=== PATIENT | female | born 1965 | race Caucasian/White ===

== ENCOUNTER 2019-11-06 01:21 | Day surgery (SDC) | payer OTHER, SELFPAY ==
[2019-11-01 11:23] VITALS: BMI 30.4
--- NOTE | 2019-11-06 08:18 | WPDANESEPPF ---
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 Patient Data Age: 54 Gender: F Height: 5 ft 5 in Weight: 83 kg Allergies Allergy/AdvReac Type Severity Reaction Status Date / Time No Known Allergies Allergy Verified 09/10/19 15:20 Home Medications Medication Instructions Recorded Confirmed Type ropinirole 2 mg tablet 2 mg PO TID #90 tablet 07/16/19 Rx trazodone 50 mg tablet 50 mg PO BID #60 tablet 07/19/19 07/19/19 Rx celecoxib 200 mg capsule 200 mg PO DAILY 09/09/19 History milnacipran 50 mg tablet 50 mg PO TID tablet 09/09/19 History secukinumab 150 mg/mL subcutaneous 150 mg SUB-Q ONCE 09/10/19 History syringe sertraline 100 mg tablet 100 mg PO DAILY #30 tablet 09/17/19 Rx omeprazole 40 mg capsule,delayed 40 mg PO TID #90 cap 09/24/19 09/24/19 Rx release ferrous sulfate 325 mg (65 mg 325 mg PO BID #60 tablet 10/16/19 Rx iron) tablet milnacipran [Savella] mg 11/01/19 11/01/19 History cyclobenzaprine 10 mg tablet 10 mg PO TID #90 tablet 11/02/19 Rx Patient hx anesthesia problems: none Family hx anesthesia problems: none PMFSH Past Medical History Medical History Arthritis Colon cancer screening GERD (gastroesophageal reflux disease) Labral tear of hip joint Plantar fasciitis Psoriasis Surgical History Surgical History History of thoracic surgery Family History Family History Other Family history of coronary artery disease Social History Social History Years smoked: 30 Smoking status: Former smoker Tobacco type: cigarettes Alcohol intake: current Anes - Eval Final PreProcedure Day of Procedure 11/06/19 08:18 Patient weight: obese Heart: regular rate and rhythm Lungs: decreased breath sounds Airway: Mallampati scale class III Neurological: alert and oriented Last oral intake: >/= 8 hours ASA classification: III Emergent: no Anesthetic plan: proceed Anesthesia type and monitoring: general GIVS and standard monitoring Informed Consent: The patient's anesthetic plan and its attendant risks and benefits were discussed with the patient/family/POA. Questions were solicited and answers provided to the satisfaction of the patient/family/POA.
[2019-11-06 08:22] VITALS: BP 142/83; PULSE 85; RESP 16; TEMP 36.9; O2SAT 97
[2019-11-06] MEDS: LACTATED RINGERS 1,000 ML 150 ML IV CONT (08:26)
--- NOTE | 2019-11-06 09:42 | PM.HPGS ---
History of Present Illness History of Present Illness Consent: Risks, benefits, and alternatives have been discussed and questions answered. Patient agrees to proceed with procedure. Chief complaint: Kramer's Esophagus with Esophagitis Narrative: Rashida Dumas is a 54 year old female with history of Kramer's, last EGD 4 years ago, now using ppi Review of Systems Constitutional: Constitutional: Denies headache(s) and Denies weakness Eyes: Eyes: Denies blurry vision ENT: Reports Normal hearing present, Denies headache(s) and Denies neck pain Cardiovascular: Cardiovascular: Denies chest pain and Denies dyspnea Respiratory: Respiratory: Denies dyspnea Gastrointestinal: Gastrointestinal: Reports no additional gastrointestinal complaints Genitourinary: Genitourinary: Denies dysuria Musculoskeletal: Musculoskeletal: Denies neck pain Integumentary/Breasts: Skin/Breast: Denies dry skin Neurologic: Reports Normal hearing present, Denies headache(s) and Denies weakness Psychiatric: Psychiatric: Denies anxiety Endocrine: Endocrine: Denies change in body appearance Hematologic/Lymphatic: Hematologic/Lymphatic: Denies easy bleeding Allergic/Immunologic: Allergic/Immunologic: Denies urticaria PMFSH Past Medical History Medical History Arthritis Colon cancer screening GERD (gastroesophageal reflux disease) Labral tear of hip joint Plantar fasciitis Psoriasis Surgical History Surgical History History of thoracic surgery Family History Family History Other Family history of coronary artery disease Social History Social History Years smoked: 30 Smoking status: Former smoker Tobacco type: cigarettes Alcohol intake: current Meds Home Medications and Allergies Home Medications Medication Instructions Recorded Confirmed Type ropinirole 2 mg tablet 2 mg PO TID #90 tablet 07/16/19 11/06/19 Rx trazodone 50 mg tablet 50 mg PO BID #60 tablet 07/19/19 11/06/19 Rx milnacipran 50 mg tablet 50 mg PO TID tablet 09/09/19 11/06/19 History omeprazole 40 mg capsule,delayed 40 mg PO TID #90 cap 09/24/19 11/06/19 Rx release ferrous sulfate 325 mg (65 mg 325 mg PO BID #60 tablet 10/16/19 11/06/19 Rx iron) tablet cholecalciferol (vitamin D3) 25 mcg PO TID 11/06/19 11/06/19 History [Vitamin D3] cyclobenzaprine 10 mg PO TID PRN 11/06/19 11/06/19 History vitamin E 400 unit PO DAILY 11/06/19 11/06/19 History Allergies Allergy/AdvReac Type Severity Reaction Status Date / Time No Known Allergies Allergy Verified 11/06/19 08:21 Vital Signs Vital Signs - 24 hr 11/06/19 08:22 Temperature 98.4 F Pulse Rate 85 Respiratory Rate 16 Blood Pressure 142/83 H Pulse Oximetry 97 Exam Const: General: comfortable and no acute distress HENMT: General nose exam: Normal nares present Eyes: General: appearance normal, both eyes and all related structures Neck: Neck: no JVD Resp: Auscultation: clear to auscultation bilaterally Cardio: Rate: regular rate Rhythm: regular rhythm GI: Inspection: non-distended GI Palp: Yes Soft to palpation Skin: General skin exam: normal color Neuro: General: gait normal Speech: normal speech Extrem: General: normal to inspection Psych: Mental Status: mental status grossly normal Assessment and Plan Assessment and plan (1) Kramer's esophagus with esophagitis: Code(s): K22.70 - Kramer's esophagus without dysplasia; K20.9 - Esophagitis, unspecified Status: Acute Assessment and Plan: will proceed with egd
[2019-11-06 10:02] VITALS: BP 103/61; PULSE 91; RESP 22; O2SAT 98
[2019-11-06 10:12] VITALS: BP 95/60; PULSE 83; RESP 20; O2SAT 99
[2019-11-06 10:22] VITALS: BP 114/71; PULSE 84; RESP 24; O2SAT 100
== END 2019-11-06 10:46 | disposition home or self-care (01) ==
PROVIDERS: PCP Family Medicine; Visit Provider Internal Medicine Gastroenterology
PROC: 0DJ08ZZ Inspection of Upper Intestinal Tract, Via Natural or Artificial Opening Endoscopic (ICD-10-PCS; CPT 43235; principal; 2019-11-06 09:30)
DX: K22.70 Barrett's esophagus without dysplasia (principal); K44.9 Diaphragmatic hernia without obstruction or gangrene; K21.0 Gastro-esophageal reflux disease with esophagitis; M19.90 Unspecified osteoarthritis, unspecified site; L40.9 Psoriasis, unspecified; Z87.891 Personal history of nicotine dependence; E66.9 Obesity, unspecified; Z68.31 Body mass index [BMI] 31.0-31.9, adult
CPT/HCPCS: 43239; 88305; J2704; J7120

== ENCOUNTER → 2021-04-10 10:21 | Outpatient (CLI) | payer OTHER, SELFPAY ==
--- NOTE | ~2021-04-10 | XR_ITS ---
EXAMINATION: XR hip LT min 2V DATE: 04/10/2021 10:35 INDICATION: Left hip pain. TECHNIQUE: 2 views of left hip were obtained. COMPARISON: None. FINDINGS: Bone alignment is normal. No fracture. Left hip joint space is normal. IMPRESSION: 1. Normal left hip. Reviewed, dictated and finalized at location A. IMPRESSION: 1. Normal left hip.
== END ==
PROVIDERS: PCP Family Medicine; Visit Provider Family Medicine
DX: M25.552 Pain in left hip (principal)
CPT/HCPCS: 73502

== ENCOUNTER → 2021-04-25 09:10 | Outpatient (CLI) | payer OTHER, SELFPAY ==
--- NOTE | ~2021-04-25 | MR_ITS ---
EXAMINATION: MR hip LT wo con DATE: 04/25/2021 10:22 INDICATION: Left hip pain TECHNIQUE: Magnetic resonance imaging (MRI) of the left hip was performed without intravenous contra st. Sequences included full-field axial PD-weighted FS FSE and T1-weighted FSE, coronal of the pelvis with PD-weighted FS FSE, small field of view of the left hip with axial PD-weighted FS FSE, sagitta l PD-weighted FS FSE and coronal PD weighted FS FSE. Additional radial T1-weighted FGR oriented ortho gonal to the acetabular rim were obtained for evaluation of the labrum. COMPARISON: None FINDINGS: Bones/labrum/cartilage: Alignment is normal. No fracture, avascular necrosis or pathologic marrow replacing process. Labral tear including delamination at the chondral labral junction at the 1:30-12:00 position of the anteros uperior left acetabular labrum. There is mild osteoarthritis at the left hip with mild partial thickn ess cartilage loss predominantly at the margins of the joint space and in particular posteriorly. Fluid: Symmetric physiologic amount of fluid within both hip joints. Soft tissues: Normal and symmetric muscle bulk and signal in the pelvis and visualized proximal thighs. Mild left g luteus minimus bursitis with associated mild gluteus minimus tendinopathy without discrete tear. Ther e is additional mild left trochanteric bursitis. The iliopsoas, remaining gluteal and proximal hamstr ing tendons are normal. Limited evaluation of visceral organs of the pelvis is unremarkable. No path ologically enlarged pelvic/inguinal lymphadenopathy. IMPRESSION: 1. Mild left hip osteoarthritis with tear at the anterosuperior acetabular labrum 2. Mild gluteus minimus and trochanteric bursitis with mild tendinopathy without discrete tear of the left gluteus minimus tendon. Reviewed, dictated and finalized at location A. IMPRESSION: 1. Mild left hip osteoarthritis with tear at the anterosuperior acetabular labr um 2. Mild gluteus minimus and trochanteric bursitis with mild tendinopathy withou t discrete tear of the left gluteus minimus tendon.
== END ==
PROVIDERS: PCP Family Medicine; Visit Provider Family Medicine
DX: M16.12 Unilateral primary osteoarthritis, left hip (principal)
CPT/HCPCS: 73721

== ENCOUNTER → 2021-05-12 14:46 | Outpatient (CLI) | payer OTHER, SELFPAY ==
--- NOTE | ~2021-05-12 | XR_ITS ---
XR lumbar spine 6V w bending DATE: 05/12/2021 15:47 INDICATION: Low back pain TECHNIQUE: Standing AP, flexion, extension and neutral lateral views. Bilateral oblique views. Standi ng coned lateral lumbosacral view. COMPARISON: None FINDINGS: There is diffuse osteopenia. There is minimal dextroscoliosis of the lower thoracic and lumbar spine. There is moderate degenerative disease at L1-2, L2-3, L3-4, L4-5. No fracture or bone destruction. No spondylolysis or spondylolisthesis is evident. No evidence of ins tability on flexion or extension. The included lower thoracic and lumbar pedicles are intact. The sacroiliac joints are unremarkable. IMPRESSION: Moderate lumbar degenerative disc disease Diffuse osteopenia Mild dextroscoliosis Reviewed, dictated and finalized at location A.
== END ==
PROVIDERS: PCP Family Medicine; Visit Provider Family Medicine
DX: M47.816 Spondylosis without myelopathy or radiculopathy, lumbar region (principal); M41.9 Scoliosis, unspecified
CPT/HCPCS: 72114